=== PATIENT | male | born 1955 | race Caucasian/White ===

== ENCOUNTER → 2016-05-13 | Outpatient (REF) | payer OTHER ==
[2016-05-13 11:55] LABS: MEAN CORPUSCULAR HEMOGLOBIN 29.5 pg (27.0-33.0); MEAN CORPUSCULAR HGB CONC 33.9 g/dl (32.0-36.5); MEAN CORPUSCULAR VOLUME 86.9 fl (80.0-96.0); RED CELL DISTRIBUTION WIDTH 12.8 % (11.5-14.5); WHITE BLOOD COUNT 6.2 K/mm3 (4.0-10.0)
[2016-05-13 11:57] LABS: ALBUMIN 3.9 GM/DL (3.2-5.2); ALBUMIN/GLOBULIN RATIO 1.26 (1.00-1.93); ALKALINE PHOSPHATASE 58 U/L (45-117); ALT/SGPT 25 U/L (12-78); ANION GAP 10 MEQ/L (8-16); AST/SGOT 14 U/L (15-37); BILIRUBIN,TOTAL 0.7 MG/DL (0.2-1.0); BLOOD UREA NITROGEN 11 MG/DL (7-18); CALCIUM LEVEL 8.8 MG/DL (8.5-10.1); CARBON DIOXIDE LEVEL 28 MEQ/L (21-32); CHLORIDE LEVEL 105 MEQ/L (98-107); CHOLESTEROL LEVEL 145 MG/DL (<200); CREATININE FOR GFR 0.96 MG/DL (0.70-1.30); FERRITIN 49 NG/ML (26-388); GLOMERULAR FILTRATION RATE > 60.0 (>56); GLUCOSE, FASTING 106 MG/DL (70-105); PERCENT SATURATION 56.6 % (19.7-37.4); POTASSIUM SERUM 4.4 MEQ/L (3.5-5.1); SODIUM LEVEL 143 MEQ/L (136-145); TOTAL IRON BINDING CAPACITY 302 UG/DL (250-450); TRIGLYCERIDES LEVEL 89 MG/DL (<150)
[2016-05-13 12:02] LABS: VITAMIN B12 LEVEL 1799 PG/ML (247-911)
== END ==
LOC: M SFHCPLAZ 07:42
PROVIDERS: ATTEND Family Medicine
DX: Z98.84 Bariatric surgery status (principal); E78.2 Mixed hyperlipidemia; E55.9 Vitamin D deficiency, unspecified

== ENCOUNTER → 2016-08-20 | Outpatient (CLI) | payer OTHER, BC ==
[~2016-08-20] MED LIST: COUM2.5T11 PO; MULT1TAB10 PO; OMEP40CA2 PO; PERC5TAB6 PO; STOO100C PO; VITA100T PO
[2016-08-20 10:33] LABS: MEAN CORPUSCULAR HEMOGLOBIN 29.6 pg (27.0-33.0); MEAN CORPUSCULAR HGB CONC 34.6 g/dl (32.0-36.5); MEAN CORPUSCULAR VOLUME 85.6 fl (80.0-96.0); RED CELL DISTRIBUTION WIDTH 12.9 % (11.5-14.5); WHITE BLOOD COUNT 5.5 K/mm3 (4.0-10.0)
[2016-08-20 10:48] LABS: INR 0.93
[2016-08-20 10:55] LABS: ALBUMIN 4.1 GM/DL (3.2-5.2); ALBUMIN/GLOBULIN RATIO 1.41 (1.00-1.93); ALKALINE PHOSPHATASE 67 U/L (45-117); ALT/SGPT 28 U/L (12-78); ANION GAP 6 MEQ/L (8-16); AST/SGOT 14 U/L (15-37); BILIRUBIN,TOTAL 0.7 MG/DL (0.2-1.0); BLOOD UREA NITROGEN 12 MG/DL (7-18); CALCIUM LEVEL 8.7 MG/DL (8.5-10.1); CARBON DIOXIDE LEVEL 29 MEQ/L (21-32); CHLORIDE LEVEL 105 MEQ/L (98-107); CREATININE FOR GFR 0.92 MG/DL (0.70-1.30); GLOMERULAR FILTRATION RATE > 60.0 (>56); GLUCOSE, FASTING 106 MG/DL (70-105); POTASSIUM SERUM 4.2 MEQ/L (3.5-5.1); SODIUM LEVEL 140 MEQ/L (136-145)
--- NOTE | 2016-08-20 16:17 | ECGEPIP ---
Stationary ECG Study [facility] Test Date: 2016-08-20 Pat Name: TIFFANIE STALLWORTH Department: Room: - Gender: M Law Office Manager: JEANETTE : 1955 Requested By: Antonio Wellington Order Number: [id number] Reading MD: Darek Staley Measurements Intervals [place] Rate: 70 P: 55 SC: 195 QRS: -69 QRSD: 103 T: 51 QT: 348 QTc: 378 Interpretive Statements SINUS RHYTHM LEFT ANTERIOR FASCICULAR BLOCK Comparison tracing not on file Electronically Signed On 08-20-2016 16:17:08 EDT by Darek Staley
--- NOTE | 2016-08-21 07:25 | REP ---
Clinical: Chest pain with history of gastroesophageal reflux . Comparison: 06/06/2009 . Technique: PA and lateral. Findings: The mediastinum and cardiac silhouette are normal. The lung moran are relatively clear and without definite acute consolidation, effusion, or pneumothorax. However, lateral view cannot exclude a subtle posterobasilar vague opacity which may warrant followup. The skeletal structures are intact and normal. Impression: 1. Subtle posterior basilar vague opacity identified on lateral radiograph only cannot be excluded. Consider chest CT with contrast for further investigation. Signed by Hamilton Miner MD 08/21/2016 07:16 A
== END ==
LOC: M ADMPAT 09:10
PROVIDERS: ATTEND Orthopaedic Surgery
DX: Z01.818 Encounter for other preprocedural examination (principal); M17.12 Unilateral primary osteoarthritis, left knee; I44.4 Left anterior fascicular block

== ENCOUNTER 2016-08-28 09:46 | Inpatient (IN) | payer OTHER, BC ==
[2016-08-20 09:33] VITALS: BP 129/90
--- NOTE | 2016-08-26 09:29 | HPE ---
DATE OF ADMISSION: 08/28/2016 ATTENDING: Dr. Amish Vanegas CHIEF COMPLAINT: Left knee pain and stiffness. HISTORY OF PRESENT ILLNESS: This is a pleasant, 61-year-old male patient who sustained a work-related injury to his left knee continued to have progressively worsening left knee pain and stiffness. Now he has pain with weightbearing activities and activities of daily living. He has elected for surgery for his continued symptoms. He has consented for a left total knee arthroplasty by Dr. Vanegas. X-rays of the left knee notable for end-stage degenerative changes of the left knee. ALLERGIES: NO KNOWN DRUG ALLERGIES. CURRENT MEDICATIONS: He takes a multivitamin once per day, Prilosec 1 tablet once per day [id number]. He takes an [id number] stool softener 100 mg as needed. MEDICAL HISTORY: Includes intermittent gastric reflux disease. Otherwise, symptomatic osteoarthritis of the left knee. PRIOR SURGERIES: Gastric bypass, appendectomy and a left knee scope. SOCIAL HISTORY: Does not smoke. He rarely uses alcohol. FAMILY HISTORY: Noncontributory. REVIEW OF SYSTEMS: Denies fever or chills. Denies chest pain, shortness breath or cough. Denies difficulty breathing. Denies nausea or vomiting. Denies chest pain. Denies recent upper respiratory infection (URI) or urinary tract infection (UTI) symptoms. Has persistent pain in his left knee and pain with weightbearing activities on the left knee. PHYSICAL EXAMINATION: Today reveals a well-nourished, well-developed, alert male patient who walks with a relatively normal gait. He does not seem to favor either side. Exam of the left knee does reveal skin to be intact. No erythema, edema or ecchymosis. Tenderness both medially and laterally, patellar grind is irritable. The calf is soft, nontender to palpation. No pain with passive range of motion of the left ankle. He can sensate light touch. There is a well-healed surgical scar. Dorsalis pedis, posterior tib pulses are palpable. Neck is supple without adenopathy or jugular venous distention (JVD). Lungs are clear to auscultation without rales or wheeze. Heart: Regular rate and rhythm. Abdomen: Bowel sounds are present. Current vital signs: Height 70 inches. Weight 228 pounds. Temperature 97.8. Blood pressure 130/86. Pulse 76. Respirations 20. LABORATORY DATA: Glucose 106, BUN 12, creatinine 0.92, sodium 140, potassium 4.2, ESR 1. WBC count 5.5, RBC count 5.1, hemoglobin 15.2, hematocrit 43.9. UA within normal limits. Urine culture no growth. Nasal and sinus cultures normal brian. PT 12.6, INR 0.93. EKG sinus rhythm. Chest x-ray: No acute cardiopulmonary process noted. Recommended a CT for followup of a questionable density on the lateral view/. A letter was sent to his primary today. IMPRESSION: Symptomatic osteoarthritis of his left knee. PLAN: Left total knee arthroplasty by Dr. Vanegas.
[~2016-08-28] VITALS: Ht 182.9 cm; Wt 103.0 kg
[~2016-08-28 09:46] MED LIST changes: -COUM2.5T11 PO; -PERC5TAB6 PO
[2016-08-28] MEDS ORDERED: ACETAMINOPHEN 500 MG TAB PO ONE (10:00)
[2016-08-28] MEDS: LR 1,000 ML IV SCH ×3 (10:00→19:34)
[2016-08-28] MEDS ORDERED: LR 1,000 ML IV ONE (10:00)
[2016-08-28] MEDS ORDERED: BUPIVACAINE LIPOSOME/PF 1.3% 20 ML VIAL (13.3MG/ML)(EXPAREL) As Ordered ONE (10:41)
[2016-08-28] MEDS ORDERED: ceFAZolin 1GM INJ (J0690) As Ordered ONE (10:41)
[2016-08-28] MEDS ORDERED: TRANEXAMIC ACID 100 MG/ML 10ML VIAL As Ordered ONE (10:42)
[2016-08-28] MEDS ORDERED: EPINEPHrine INJ 1 MG/ML 1ML AMP As Ordered ONE (10:42)
[2016-08-28] MEDS ORDERED: fentaNYL 100 MCG/2 ML INJECTION (J3010) As Ordered ONE ×2 (11:26→12:56)
[2016-08-28] MEDS ORDERED: MIDAZOLAM INJ 2 MG/2 ML VIAL (J2250) As Ordered ONE ×4 (11:26→14:54)
[2016-08-28] MEDS ORDERED: fentaNYL 100 MCG/2 ML INJECTION (J3010) IV ONE (12:15)
[2016-08-28] MEDS ORDERED: MIDAZOLAM INJ 2 MG/2 ML VIAL (J2250) IV ONE (12:15)
[2016-08-28] MEDS ORDERED: LIDOCAINE 2% INJ 100 MG/5 ML SDV (FOR ANES.) As Ordered ONE (12:56)
[2016-08-28] MEDS ORDERED: PROPOFOL 200 MG/20 ML VIAL As Ordered ONE ×2 (12:56→15:29)
[2016-08-28] MEDS ORDERED: MORPHINE 1MG/ML IN 0.9% NACL 100ML IV BAG As Ordered ONE (16:58)
[2016-08-28] MEDS ORDERED: LR 1,000 ML IV SCH (17:00)
[2016-08-28] MEDS ORDERED: fentaNYL 100 MCG/2 ML INJECTION (J3010) IV PRN (17:00)
[2016-08-28] MEDS ORDERED: ONDANSETRON 4MG/2ML VIAL (J2405) IV PRN ×2 (17:00→17:15)
[2016-08-28] MEDS ORDERED: WARFARIN SOD 5 MG TAB PO SCH (17:00)
[2016-08-28] MEDS ORDERED: FLEET ENEMA PR PRN (17:15)
[2016-08-28] MEDS ORDERED: EPIDURAL/PCA KEYS XX PRN (17:15)
[2016-08-28] MEDS ORDERED: ACETAMINOPHEN TAB 650MG DOSE (2X325MG) PO PRN (17:15)
[2016-08-28] MEDS ORDERED: NALBUPHINE HCL 10 MG/ML AMP (J2300) IV PRN (17:15)
[2016-08-28] MEDS ORDERED: NALOXONE INJ 0.4 MG/1 ML VIAL (J2310) IV PRN (17:15)
[2016-08-28] MEDS ORDERED: MORPHINE 1MG/ML IN 0.9% NACL 100ML IV BAG IV PRN (17:15)
[2016-08-28] MEDS ORDERED: diphenhydrAMINE INJ 50MG/ML VIAL (J1200) IV PRN (17:15)
[2016-08-28 17:45] VITALS: BP 130/74
[2016-08-28 18:15] VITALS: BP 137/93
[2016-08-28 19:15] VITALS: BP 128/90
--- NOTE | 2016-08-28 19:40 | CR.PDOC ---
[facility] Consultation Consultation DATE OF CONSULTATION: 08/28/16 REFERRING PROVIDER: Guy Palacios M.D. ATTENDING PHYSICIAN: Dr. Vanegas REASON FOR CONSULTATION/CHIEF COMPLAINT: . Medical Co-Management HISTORY OF PRESENT ILLNESS: 61-year-old male with past medical history of GERD and gastric bypass surgery was admitted to [facility] for total left knee arthroplasty. The hospitalist service has been admitted for medical comanagement. At this time, the patient states that he is feeling well and denies any acute complaints of fevers, chills, chest pain, shortness of breath, palpitations, abdominal pain, or any nausea/20/ diarrhea. ALLERGIES: Please see below. HOME MEDICATIONS: Please see below. PAST MEDICAL HISTORY: As noted above PAST SURGICAL HISTORY: History of gastric bypass, appendectomy, left knee arthroscopy FAMILY HISTORY: Noncontributory SOCIAL HISTORY: Denies any alcohol, tobacco, illicit drug use. Is functionally independent at baseline. REVIEW OF SYSTEMS: 10 point review of systems negative unless otherwise specified in HPI. PHYSICAL EXAMINATION: VITAL SIGNS: Please see below. GENERAL APPEARANCE: . Awake, alert, oriented HEENT: . Normocephalic, atraumatic RESPIRATORY: . Clear to auscultation bilaterally CARDIOVASCULAR: . Normal rate, normal rhythm ABDOMEN: . Soft, nontender, nondistended EXTREMITIES: . Left knee noted to wrapped in surgical dressing. Range of motion limited secondary to recent surgery. Neurovascularly intact distally. LABORATORY DATA: Please see below. ASSESSMENT/PLAN: Status post total left knee arthroplasty Pain management and DVT prophylaxis as per primary team GERD Continue PPI History of gastric bypass Continue multivitamin supplementation Should there be any further questions regarding the patient's medical management , please note that my colleague Dr. Ambrosio will begin to follow the patient starting 08/29/16 at 7 AM. Vital Signs/I&O Vital Signs Date Time Temp Pulse Resp B/P (MAP) Pulse Ox O2 Delivery O2 Flow Rate FiO2 08/28/16 18:30 Nasal Cannula 2.0 08/28/16 17:20 61 18 119/74 (89) 100 08/28/16 17:05 96.7 Allergies Coded Allergies: No Known Drug Allergy (Unverified Allergy, Unknown, 08/28/16) Home Medications Scheduled Cyanocobalamin (Vitamin B-12) 100 Mcg Tab, Unknown Dose PO DAILY, (Reported) Docusate Sodium (Stool Softener) 100 Mg Cap, 100 MG PO DAILY, (Reported) Multivitamins (Multivitamin Adults) 1 Tab Tab, 1 TAB PO DAILY, (Reported) Omeprazole (Omeprazole) 40 Mg Cap, 40 MG PO DAILY, (Reported) GUY PALACIOS MD Aug 28, 2016 19:40
[2016-08-28 20:15] VITALS: BP 127/63
[2016-08-28 21:15] VITALS: BP 113/66
[2016-08-28 22:15] VITALS: BP 114/64
[2016-08-29 02:00] VITALS: BP 99/59
[2016-08-29] MEDS: LR 1,000 ML IV SCH (04:49)
[2016-08-29 06:00] VITALS: BP 116/62
[2016-08-29] MEDS ORDERED: ONDANSETRON 4 MG TAB (S0181) PO PRN (06:30)
[2016-08-29] MEDS ORDERED: PERCOCET 5MG/325MG TAB PO PRN ×2 (06:30)
[2016-08-29 06:56] LABS: MEAN CORPUSCULAR HEMOGLOBIN 29.1 pg (27.0-33.0); MEAN CORPUSCULAR HGB CONC 33.3 g/dl (32.0-36.5); MEAN CORPUSCULAR VOLUME 87.5 fl (80.0-96.0); RED CELL DISTRIBUTION WIDTH 12.7 % (11.5-14.5); WHITE BLOOD COUNT 13.4 K/mm3 (4.0-10.0)
[2016-08-29 06:58] LABS: INR 1.05
[2016-08-29 07:11] LABS: ANION GAP 4 MEQ/L (8-16); BLOOD UREA NITROGEN 16 MG/DL (7-18); CALCIUM LEVEL 8.3 MG/DL (8.5-10.1); CARBON DIOXIDE LEVEL 27 MEQ/L (21-32); CHLORIDE LEVEL 101 MEQ/L (98-107); CREATININE FOR GFR 0.87 MG/DL (0.70-1.30); GLOMERULAR FILTRATION RATE > 60.0 (>56); GLUCOSE, FASTING 133 MG/DL (70-105); POTASSIUM SERUM 4.6 MEQ/L (3.5-5.1); SODIUM LEVEL 132 MEQ/L (136-145)
[2016-08-29] MEDS ORDERED: COUM2.5T11 PO (08:30)
[2016-08-29] MEDS ORDERED: PERC5TAB6 PO (08:31)
[2016-08-29] MEDS ORDERED: MOM 30ML SUSPENSION UDC PO SCH (09:00)
[2016-08-29] MEDS ORDERED: ENOXAPARIN 40 MG/0.4 ML SYRINGE (J1650) SC ONE (09:00)
[2016-08-29] MEDS ORDERED: MIRALAX *UNIT DOSE* 17GM PACKET PO SCH (09:00)
[2016-08-29] MEDS ORDERED: MULTIVITAMINS/MINERALS THERAP 1 TAB PO SCH (09:00)
[2016-08-29] MEDS ORDERED: SENOKOT S TAB PO SCH (09:00)
[2016-08-29] MEDS ORDERED: OMEPRAZOLE 20 MG CAP PO SCH (09:00)
--- NOTE | 2016-08-29 09:28 | IPNPDOC ---
Subjective Date Seen The patient was seen on 08/29/16. Subjective Chief Complaint/HPI The patient is a 61-year-old male admitted with a reason for visit of Left Knee Arthritis. Events since last encounter Routine check prior to DC. No concerns. Constitutional: Denies: Chills, Fever, Night Sweats Pulmonary: Denies: Dyspnea, Cough Cardiovascular: Denies: Chest Pain, Palpitations, Orthopnea, Paroxysmal Noc. Dyspnea, Lt Headedness Gastrointestinal: Denies: Nausea, Vomiting, Abdominal Pain, Diarrhea, Constipation Psych: Reports: Mood Normal, Denies: Depression, Memory Issues Objective Physical Examination General Exam: Positive: Alert, No Acute Distress Eye Exam: Positive: PERRLA, Conjunctiva & lids normal, EOMI, Negative: Sclera icteric Neck Exam: Positive: Supple, Negative: JVD, thyromegaly Chest Exam: Positive: Clear to auscultation, Normal air movement Heart Exam: Positive: Rate Normal, Regular Rhythm, Normal S1, Normal S2, Negative: Murmurs, Rubs Neuro Exam: Positive: Normal Gait, Normal Speech, Cranial Nerves 3-12 NL, Reflexes 2+ Psych Exam: Positive: Mental status NL, Mood NL, Oriented x 3 Assessment /Plan Problems (1) Status post revision of total replacement of left knee Problem Text: DC home. Continue routine medications. F>u PCP as scheduled 2016 Plan/VTE VTE Prophylaxis Ordered?: Yes (warafrin per ortho) VS, I&O, 24H, Fishbone Vital Signs/I&O Vital Signs Date Time Temp Pulse Resp B/P (MAP) Pulse Ox O2 Delivery O2 Flow Rate FiO2 08/29/16 09:04 16 08/29/16 06:00 97.7 73 116/62 (80) 99 Room Air 08/28/16 18:30 2.0 I&O- Last 24 Hours up to 6 AM 08/29/16 06:00 Intake Total 2870 ml Output Total 1375 ml Balance 1495 ml Laboratory Data 24H LABS Laboratory Tests 2 08/29/16 06:17: Prothrombin Time 13.8, Prothromb Time International Ratio 1.05, Anion Gap 4L, Glomerular Filtration Rate > 60.0, Blood Urea Nitrogen 16, Creatinine 0.87, Sodium Level 132L, Potassium Level 4.6, Chloride Level 101, Carbon Dioxide Level 27, Calcium Level 8.3L CBC/BMP Laboratory Tests 08/29/16 06:17 Red Blood Count 4.22 L, Mean Corpuscular Volume 87.5, Mean Corpuscular Hemoglobin 29.1, Mean Corpuscular Hemoglobin Concent 33.3, Red Cell Distribution Width 12.7, Calcium Level 8.3 L Raine Cordova COMMUNITY MUSIC THERAPIST Aug 29, 2016 09:28
[2016-08-29 10:00] VITALS: BP 154/55
[2016-08-29] MEDS ORDERED: dexameTHASONE 10 MG/1 ML VIAL PRES.FREE (J1100) ONE (10:33)
[2016-08-29] MEDS ORDERED: ROPIvacaine 0.5% 30 ML INJECTION (J2795) ONE (10:33)
[2016-08-29] MEDS ORDERED: EPINEPHrine INJ 1 MG/ML 1ML AMP ONE (10:33)
[2016-08-29] MEDS ORDERED: WARFARIN SOD 5 MG TAB PO ONE (17:00)
--- NOTE | 2016-08-29 17:21 | REP ---
AP LATERAL LEFT KNEE: 08/29/2016. Clinical history: Status post left total knee arthroplasty. Comparison 09/22/2015 from [facility] [place]. Findings: Skin stefan anteriorly and three components of a left total knee arthroplasty are now noted. The three components are well aligned in patient [place] bone and each other. There is a suprapatellar effusion as the subcutaneous edema subcutaneous air from the immediate postoperative state. No other finding. Signed by Luke Davis MD 08/29/2016 05:12 P
--- NOTE | 2016-08-29 19:58 | RO ---
DATE OF PROCEDURE: 08/28/2016 PREPROCEDURE DIAGNOSIS: Left knee posttraumatic valgus degenerative arthritis. POSTPROCEDURE DIAGNOSIS: Left knee posttraumatic valgus degenerative arthritis. OPERATIVE PROCEDURE: Left total knee arthroplasty using a size 5 cruciate retaining femoral component with size 4 tibial tray and a 15 mm rotating platform polyethylene insert, 38 mm polyethylene button. All components were cemented. Prosthesis made by [employer]. It was a PFC knee. SURGEON: Antonio Vanegas MD [employer] SALESPERSON: Mrs. Rosemarie Jerez ANESTHESIA: Spinal with left femoral nerve block. SPECIMENS: Joint surface. ESTIMATED BLOOD LOSS: About 100 mL. DESCRIPTION OF OPERATION: Antibiotics were given intravenously, preoperatively and then successful left femoral nerve block anesthetic was established. A tourniquet was placed left lower extremity and not inflated. Then the left lower extremity was prepped and draped in the usual sterile fashion. After appropriate time-out, the leg was elevated and the tourniquet was inflated to 250 mmHg. The previous lateral peripatellar incision was marked, but avoided. An anterior incision was then made for a medial parapatellar approach to the knee. Bovie cautery was used to coagulate the crossing vessels. A medial parapatellar arthrotomy was then performed. We did not perform any significant medial subperiosteal dissection around the proximal tibia because of the overall valgus alignment. It was also noteworthy that he had a fairly significant flexion contracture. I did subperiosteal dissect around the proximal and lateral tibial plateau and then released the lateral synovial plica and adhesions and then was able to rolanda the patella and then flex the knee and the ACL was debrided. There was a significant amount of bone eburnation noted in the lateral, femoral and lateral tibial condyles as well as medially with predominant arthritis in the lateral compartment. The drill was placed down the center of the femoral canal. Distal femoral cutting block was then applied and set into position at 5 degrees valgus cut at 10 mm resection level for a left knee. Prior to setting the distal femoral cutting block I did remove the remaining cartilage off the medial femoral condyle such that the jig would fit more flush. We then did the distal femoral cut. AP sizing jig measured between a 4 and a 5. It was templated preoperatively as a 5 and he was very wide so we elected to go with a number 5. 3 degrees external rotation jig was applied and I actually rotated it just a little bit more in addition based on the epicondylar axis and white side line because of the wear on the lateral side of the distal femur. The four-in-one block was then pinned into position and the anterior posterior chamfer cuts were performed. We then exposed the proximal tibia, used the extramedullary alignment jig to estimate being parallel to the mechanical axis of the tibia. We referenced off the more involved lateral tibial condyle at 4 mm resection level. I checked medially and we were taking off about 8 mm from that side. The slope was checked to be sure they were in good position. Once the block was pinned into position, the extramedullary leland was used for a secondary check. It did appear that we were parallel to the mechanical axis and thus we performed a proximal tibial osteotomy. It is noteworthy that the lateral tibial condyle bone was very eburnated and hard, but we eventually able to perform the cut and then it was noteworthy at this point, however, that we had a significant amount of tightness, both in flexion and extension. However, I did place the laminar drywall finisher foreman laterally first and performed a completion medial meniscectomy, then placed the laminar drywall finisher foreman medially and performed a completion lateral meniscectomy and debridement of the posterior lateral osteophytes of which were several. But it was noteworthy that we could not get a 10 mm spacer in flexion or in extension, thus it was elected at this point to take an additional amount of bone off the proximal tibia. Thus, I dropped the block down 2 mm and performed a proximal tibial osteotomy revision. This did improve the flexion and extension gaps. I then exposed the proximal tibia and sized for a ____cut off , however, he was fairly snug but the flexion gap came back nicely. I was able to flex the knee, but there was still some tightness in flexion and still some tightness in extension, but there was some asymmetry to varus valgus stress testing and extension, but it was a bit tight laterally. Thus, I did place the knee in extension and used the laminar drywall finisher foreman to tighten the lateral collateral ligament and did a pie crust release and then I was able to get a 12.5 trial spacer block in position. It did improve, but I still was not quite satisfied with the laxity to valgus stress. However, as I did that he had recurrent difficulty when full extension. Thus, at this point I felt that we should take more distal femur because it was definitely more tight in extension than in flexion. Flexion seemed to be reasonably well gapped. Thus, I used the Batwing and reapplied the distal femoral cutting jig, and once I had found the appropriate holes, the distal femoral cut was taken down an additional 2 mm, then I rechecked our extension space. He was still a bit snug, thus I took an additional 2 mm, took it for a total of 4 mm in addition to the distal femur. Then, the four-in-one block was applied, then the anterior and posterior chamfer cuts, and there was not much more taken off posteriorly. At this point, we exposed the proximal tibia and sized for a #4 tibial tray. It was then reamed and broached into position. Then the trial 12.5 was applied. Then we placed the femur, however, the femur would not fit quite snugly. It tended to go into a flexed position and it was apparent that we were tight in the anterior chamfer cuts. Thus, at this point, I reapplied the four-in-one block and noted that indeed there was a bit of a flexion, that is the eburnated tough bone anteriorly caused the saw blade to skive and thus it was forcing the femoral component into flexion. Once I had that revised with reapplication of the four-in-one block and rechecking out cuts, the femoral component fit much better. Then, as I placed a trial 12.5 spacer and brought the knee into extension, he still had, however, some tightness in extension, but it was reasonably symmetric in flexion, but it still had some valgus laxity and it was tight laterally. I checked our alignment. It looked as if there may be some slight asymmetry in her tibial cut given the eburnated bone laterally, thus I reapplied the tibial jig with a Batwing and then I cheated the tibial jig into slight amount of a valgus cut such that we could take more off the tibia on the lateral side and leave the medial side alone and I pinned it into position using the extramedullary leland and then performed a revision proximal tibial cut. Then, I also took the time to look more closely at our posterior capsular releases once again to help improve extension. The laminar drywall finisher foreman was placed back into the knee both on the medial and lateral sides and I debrided more of the posterior lateral and medial condyles and tried to strip some of the posterior capsule from the femur and this indeed allowed better extension. At this point, then the 15 spacer block was applied and the knee would actually come almost into full extension, but had significantly improved valgus stress testing, thus I felt this was in the acceptable range. It is noteworthy that the tourniquet was released midway through the procedure just before I decided to revise the femoral cuts. The knee was brought into extension, I everted the patella, performed patella osteotomy, sized for a 38 button, the lug holes were drilled and the trial prosthesis was applied and the patellofemoral tracking was anatomic. Thus at this point, after these multiple revisions, and soft tissue releases, I think we had an overall acceptably aligned total knee and thus we elected to proceed with implanting these components. We elected not to proceed with a PCL sacrificing knee at this point. We did not think that would gain anything because we had reasonable alignment now and we could save his bone stock in case down the road he needed revision knee replacement. Thus, we removed all the trial components after the lug holes with the femur were drilled and then we applied the Esmarch and elevated the leg and reapplied the tourniquet and then prepared the bony surfaces for cementing with a copious amount of pulsatile lavage irrigant solution, which we did actually several times throughout the operation. My molding line assistant, Mrs. Rosemarie Jerez mixed the cement at the back table. She was also critical to the success of this procedure by helping to manipulate the knee, do soft tissue retraction as appropriate, help to close the wound, help to prepare the patient and many other tasks. Once the cement had been mixed, all the surfaces were thoroughly dried, I cemented the tibial tray, removed excess cement and placed the polyethylene and cemented the femoral component. Removed excess cement and then brought the knee to extension and then placed the cement on the patella and polyethylene patella component was applied and held with a clamp. All the excess cement was removed. We copiously pulsatile lavage irrigated out the knee joint as we waited for the cement to harden. As we were waiting, I then instilled the Exparel long-acting Marcaine injection near the periosteum around the femur and the tibia as well as the capsular edges and then applied the tranexamic acid and then began closing the arthrotomy with two Brandt #1 PDS sutures and the medial parapatellar areas closed with a #1 PDS suture, then a running double armed #1 Stratafix was used to close the capsule. The tourniquet was then released again and we copiously irrigated the soft tissues again, then irrigated the deep subdermal tissues, and interrupted #2-0 PDS sutures and the skin was closed with stefan, covered by Adaptic dry sterile bulky dressing. He was then transferred to the recovery room in stable condition. There were no intraoperative complications.
--- NOTE | 2016-09-03 21:56 | DSES ---
DATE OF ADMISSION: 08/28/2016 DATE OF DISCHARGE: 08/29/2016 ADMISSION DIAGNOSIS: Left knee arthritis. OTHER DIAGNOSIS: Gastroesophageal reflux disease. DISCHARGE DIAGNOSIS: Left knee arthritis status post left total knee arthroplasty. OPERATION PERFORMED: Left total knee arthroplasty. HISTORY: This is a 61-year-old male with progressively worsening left knee pain and stiffness. The patient was admitted for elective left knee replacement. HOSPITAL COURSE: The patient was admitted on the day of surgery and underwent left knee arthroplasty, which was uneventful. He did well in the postoperative period and his hospital course was without complications. The patient was up with physical therapy per the protocol and his pain was controlled. On the day of discharge the patient was doing well. He was weightbearing as tolerated, will move his knee to prevent stiffness, will use adjusted dose Coumadin and thromboembolitic deterrent (DEEDEE) stockings for 30 days postoperatively for deep venous thrombosis (DVT) prophylaxis and he will use oral medications for pain control. Also, he will follow in the office in two weeks for staple removal, will resume preoperative medications and diet and he was given instructions for wound monitoring and activity limitations. Please refer to the medical record for further detail.
== END 2016-08-29 13:25 | disposition home health service (06) | DRG 302 ==
LOC: M OR 09:46 → M MS5PR 17:30
PROVIDERS: ADMIT Orthopaedic Surgery; ATTEND Orthopaedic Surgery
PROC: 0SRD0J9 Replacement of Left Knee Joint with Synthetic Substitute, Cemented, Open Approach (ICD-10-PCS; principal; 2016-08-28 12:30)
DX: M17.32 Unilateral post-traumatic osteoarthritis, left knee (principal); K21.9 Gastro-esophageal reflux disease without esophagitis; E55.9 Vitamin D deficiency, unspecified; R91.8 Other nonspecific abnormal finding of lung field; Z98.84 Bariatric surgery status; Z90.49 Acquired absence of other specified parts of digestive tract; Z79.899 Other long term (current) drug therapy

== ENCOUNTER → 2016-09-12 | Outpatient (REF) | payer OTHER, BC ==
[~2016-09-12] MED LIST changes: +COUM2.5T17 PO; +PERC5TAB12 PO
[2016-09-12 14:39] LABS: INR 1.69
== END ==
LOC: M LABDRAW1 14:04
PROVIDERS: ATTEND Orthopaedic Surgery
DX: Z47.1 Aftercare following joint replacement surgery (principal)

== ENCOUNTER → 2016-09-19 | Outpatient (REF) | payer OTHER ==
[2016-09-19 15:59] LABS: INR 1.61
== END ==
LOC: M LAB REF 15:42
PROVIDERS: ATTEND Nurse Practitioner Family
DX: Z51.81 Encounter for therapeutic drug level monitoring (principal); Z79.01 Long term (current) use of anticoagulants

== ENCOUNTER → 2016-09-24 | Outpatient (CLI) | payer BC, OTHER ==
--- NOTE | 2016-09-24 17:27 | REP ---
Chest x-ray: Three views presented. History: Radiologic findings in the lung moran. Comparison chest x-ray August 20, 2016. Findings: Lungs are symmetrically aerated and free of infiltrate and clear today. The pleural angles are sharp. Heart is not enlarged. The aorta is somewhat tortuous. There is a mild dextroconvex curvature in the thoracic spine again noted. There are spine degenerative changes. Pulmonary vasculature is not increased. No abnormal pulmonary parenchymal density is visible today. Impression: No active disease. Signed by Paresh Mg MD 09/25/2016 09:24 A
== END ==
LOC: M ADAMS 15:26
PROVIDERS: ATTEND Family Medicine
DX: R91.8 Other nonspecific abnormal finding of lung field (principal)

== ENCOUNTER → 2017-05-14 | Outpatient (REF) | payer OTHER ==
[2017-05-14 11:38] LABS: HEMATOCRIT 40.7 % (42.0-52.0); HEMOGLOBIN 13.2 g/dl (14.0-18.0); MEAN CORPUSCULAR HEMOGLOBIN 27.6 pg (27.0-33.0); MEAN CORPUSCULAR HGB CONC 32.4 g/dl (32.0-36.5); MEAN CORPUSCULAR VOLUME 85.1 fl (80.0-96.0); PLATELET COUNT, AUTOMATED 167 10^3/uL (150-450); RED BLOOD COUNT 4.78 10^6/uL (4.30-6.10); RED CELL DISTRIBUTION WIDTH 13.2 % (11.5-14.5); WHITE BLOOD COUNT 4.7 10^3/uL (4.0-10.0)
[2017-05-14 12:01] LABS: VITAMIN B12 LEVEL 1842 PG/ML (247-911)
[2017-05-14 12:03] LABS: ESTIMATED AVERAGE GLUCOSE 123 MG/DL (60-110); HEMOGLOBIN A1c 5.9 %
[2017-05-14 12:09] LABS: ALBUMIN 4.1 GM/DL (3.2-5.2); ALBUMIN/GLOBULIN RATIO 1.41 (1.00-1.93); ALKALINE PHOSPHATASE 77 U/L (45-117); ALT/SGPT 20 U/L (12-78); ANION GAP 5 MEQ/L (8-16); AST/SGOT 12 U/L (7-37); BILIRUBIN,TOTAL 0.5 MG/DL (0.2-1.0); BLOOD UREA NITROGEN 18 MG/DL (7-18); CALCIUM LEVEL 8.6 MG/DL (8.8-10.2); CARBON DIOXIDE LEVEL 30 MEQ/L (21-32); CHLORIDE LEVEL 109 MEQ/L (98-107); CHOLESTEROL LEVEL 123 MG/DL (<200); CHOLESTEROL RISK RATIO 3.416 (<5); CREATININE FOR GFR 0.92 MG/DL (0.70-1.30); FERRITIN 12 NG/ML (26-388); GLOMERULAR FILTRATION RATE > 60.0 (>49); GLUCOSE, FASTING 96 MG/DL (70-100); HDL CHOLESTEROL 36 MG/DL (>40); NON-HDL-C 87 MG/DL; POTASSIUM SERUM 4.4 MEQ/L (3.5-5.1); SODIUM LEVEL 144 MEQ/L (136-145); TRIGLYCERIDES LEVEL 45 MG/DL (<150)
== END ==
LOC: M SFHCLERA 07:53
DX: E74.9 Disorder of carbohydrate metabolism, unspecified (principal); Z98.84 Bariatric surgery status; E78.2 Mixed hyperlipidemia; E55.9 Vitamin D deficiency, unspecified
CPT/HCPCS: 82607

== ENCOUNTER → 2018-02-17 | Outpatient (REF) | payer OTHER ==
[2018-02-17 11:55] LABS: HEMATOCRIT 44.1 % (42.0-52.0); HEMOGLOBIN 14.7 g/dl (13.5-17.5); MEAN CORPUSCULAR HEMOGLOBIN 28.7 pg (27.0-33.0); MEAN CORPUSCULAR HGB CONC 33.3 g/dl (32.0-36.5); PLATELET COUNT, AUTOMATED 181 10^3/uL (150-450); RED BLOOD COUNT 5.13 10^6/uL (4.30-6.10); RED CELL DISTRIBUTION WIDTH 12.7 % (11.5-14.5); RETIC HEMOGLOBIN EQUIVALENT 34.4 pg (24-36); RETICULOCYTE # 41.6 10^9/L (17-77); RETICULOCYTE % 0.8 % (0.5-1.5); WHITE BLOOD COUNT 5.8 10^3/uL (4.0-10.0)
[2018-02-17 12:13] LABS: FERRITIN 27 NG/ML (26-388); IRON (FE) 148 UG/DL (65-175); PERCENT SATURATION 45.5 % (19.7-50.0); TOTAL IRON BINDING CAPACITY 325 UG/DL (250-450)
== END ==
LOC: M SFHCADAM 07:54
DX: D50.8 Other iron deficiency anemias (principal)

== ENCOUNTER → 2018-05-14 | Outpatient (REF) | payer OTHER ==
[~2018-05-14] MED LIST changes: -VITA100T PO; +VITA1TAB22 PO
[2018-05-14 11:32] LABS: HEMATOCRIT 44.7 % (42.0-52.0); HEMOGLOBIN 14.9 g/dl (13.5-17.5); MEAN CORPUSCULAR HEMOGLOBIN 28.4 pg (27.0-33.0); MEAN CORPUSCULAR HGB CONC 33.3 g/dl (32.0-36.5); MEAN CORPUSCULAR VOLUME 85.1 fl (80.0-96.0); PLATELET COUNT, AUTOMATED 174 10^3/uL (150-450); RED BLOOD COUNT 5.25 10^6/uL (4.30-6.10); WHITE BLOOD COUNT 6.1 10^3/uL (4.0-10.0)
[2018-05-14 11:43] LABS: ALBUMIN 4.1 GM/DL (3.2-5.2); ALT/SGPT 30 U/L (12-78); BILIRUBIN,TOTAL 0.5 MG/DL (0.2-1.0); BLOOD UREA NITROGEN 17 MG/DL (7-18); CALCIUM LEVEL 8.8 MG/DL (8.8-10.2); CARBON DIOXIDE LEVEL 30 MEQ/L (21-32); CHLORIDE LEVEL 105 MEQ/L (98-107); CHOLESTEROL LEVEL 155 MG/DL (<200); CHOLESTEROL RISK RATIO 5.166 (<5); CREATININE FOR GFR 0.83 MG/DL (0.70-1.30); FERRITIN 29 NG/ML (26-388); GLOMERULAR FILTRATION RATE > 60.0 (>49); GLUCOSE, FASTING 106 MG/DL (70-100); HDL CHOLESTEROL 30 MG/DL (>40); IRON (FE) 118 UG/DL (65-175); LDL CHOLESTEROL 100 MG/DL (<100); NON-HDL-C 125 MG/DL; PERCENT SATURATION 35.2 % (19.7-50.0); POTASSIUM SERUM 4.4 MEQ/L (3.5-5.1); SODIUM LEVEL 140 MEQ/L (136-145); TOTAL IRON BINDING CAPACITY 335 UG/DL (250-450); TOTAL PROTEIN 7.2 GM/DL (6.4-8.2); TRIGLYCERIDES LEVEL 123 MG/DL (<150)
[2018-05-14 11:48] LABS: TOTAL 25(OH) VITAMIN D 30.9 NG/ML (30.0-100.0); VITAMIN B12 LEVEL 1562 PG/ML (247-911)
[2018-05-14 12:19] LABS: HEMOGLOBIN A1c 5.9 %
== END ==
LOC: M SFHCADAM 07:48
PROVIDERS: ATTEND Family Medicine
DX: D50.8 Other iron deficiency anemias (principal); E78.2 Mixed hyperlipidemia; R73.03 Prediabetes; Z12.5 Encounter for screening for malignant neoplasm of prostate; E55.9 Vitamin D deficiency, unspecified; K21.9 Gastro-esophageal reflux disease without esophagitis; Z79.01 Long term (current) use of anticoagulants
CPT/HCPCS: 80053; 80061; 82306; 82607; 82728; 83036; 83550; 85027; 85046; G0103

== ENCOUNTER → 2019-06-02 | Outpatient (REF) | payer OTHER ==
[~2019-06-02] MED LIST changes: +CYAN100T5 PO; +MM S100C PO; -OMEP40CA2 PO; +OMEP40CA97 PO; -STOO100C PO; -VITA1TAB22 PO
[2019-06-02 12:24] LABS: HEMATOCRIT 45.3 % (42.0-52.0); HEMOGLOBIN 14.8 g/dl (13.5-17.5); MEAN CORPUSCULAR HGB CONC 32.7 g/dl (32.0-36.5); MEAN CORPUSCULAR VOLUME 88.8 fl (80.0-96.0); PLATELET COUNT, AUTOMATED 184 10^3/uL (150-450); WHITE BLOOD COUNT 6.7 10^3/uL (4.0-10.0)
[2019-06-02 12:33] LABS: ALT/SGPT 25 U/L (12-78); BILIRUBIN,TOTAL 0.5 MG/DL (0.2-1.0); BLOOD UREA NITROGEN 15 MG/DL (7-18); CALCIUM LEVEL 9.2 MG/DL (8.8-10.2); CARBON DIOXIDE LEVEL 31 MEQ/L (21-32); CHLORIDE LEVEL 107 MEQ/L (98-107); CHOLESTEROL LEVEL 153 MG/DL (<200); CHOLESTEROL RISK RATIO 4.935 (<5); CREATININE FOR GFR 0.94 MG/DL (0.70-1.30); FERRITIN 22 NG/ML (26-388); GLOMERULAR FILTRATION RATE > 60.0 (>49); GLUCOSE, FASTING 104 MG/DL (70-100); HDL CHOLESTEROL 31 MG/DL (>40); LDL CHOLESTEROL 103 MG/DL (<100); NON-HDL-C 122 MG/DL; POTASSIUM SERUM 4.4 MEQ/L (3.5-5.1); SODIUM LEVEL 142 MEQ/L (136-145); TOTAL PROTEIN 7.1 GM/DL (6.4-8.2); TRIGLYCERIDES LEVEL 95 MG/DL (<150)
[2019-06-02 12:50] LABS: HEMOGLOBIN A1c 6.2 %
== END ==
LOC: M SFHCLERA 07:51
PROVIDERS: ATTEND Family Medicine
DX: Z98.84 Bariatric surgery status (principal); D50.8 Other iron deficiency anemias; E78.2 Mixed hyperlipidemia; R73.03 Prediabetes; Z12.5 Encounter for screening for malignant neoplasm of prostate; E55.9 Vitamin D deficiency, unspecified

== ENCOUNTER → 2020-05-16 | Outpatient (CLI) | payer OTHER ==
[~2020-05-16] MED LIST changes: +CYAN100T4 PO; -CYAN100T5 PO
[2020-05-16 10:31] LABS: HEMATOCRIT 46.8 % (42.0-52.0); HEMOGLOBIN 15.4 g/dl (13.5-17.5); MEAN CORPUSCULAR HEMOGLOBIN 28.5 pg (27.0-33.0); MEAN CORPUSCULAR HGB CONC 32.9 g/dl (32.0-36.5); MEAN CORPUSCULAR VOLUME 86.5 fl (80.0-96.0); PLATELET COUNT, AUTOMATED 196 10^3/uL (150-450); RED BLOOD COUNT 5.41 10^6/uL (4.30-6.10)
[2020-05-16 10:50] LABS: HEMOGLOBIN A1c 5.6 %
[2020-05-16 10:54] LABS: ALBUMIN 4.1 GM/DL (3.2-5.2); ALT/SGPT 34 U/L (12-78); BILIRUBIN,TOTAL 0.4 MG/DL (0.2-1.0); BLOOD UREA NITROGEN 18 MG/DL (7-18); CALCIUM LEVEL 8.7 MG/DL (8.8-10.2); CARBON DIOXIDE LEVEL 27 MEQ/L (21-32); CHLORIDE LEVEL 107 MEQ/L (98-107); CHOLESTEROL LEVEL 166 MG/DL (<200); CHOLESTEROL RISK RATIO 5.533 (<5); CREATININE FOR GFR 1.03 MG/DL (0.70-1.30); FERRITIN 27 NG/ML (26-388); GLOMERULAR FILTRATION RATE > 60.0 (>49); GLUCOSE, FASTING 120 MG/DL (70-100); HDL CHOLESTEROL 30 MG/DL (>40); LDL CHOLESTEROL 110 MG/DL (<100); NON-HDL-C 136 MG/DL; POTASSIUM SERUM 4.2 MEQ/L (3.5-5.1); SODIUM LEVEL 141 MEQ/L (136-145); TOTAL PROTEIN 7.3 GM/DL (6.4-8.2); TRIGLYCERIDES LEVEL 130 MG/DL (<150)
[2020-05-16 10:57] LABS: TOTAL 25(OH) VITAMIN D 37.8 NG/ML (30.0-100.0)
[2020-05-16 10:58] LABS: VITAMIN B12 LEVEL > 2000 PG/ML (247-911)
== END ==
LOC: M WUC 08:06
PROVIDERS: ATTEND Family Medicine
DX: D50.8 Other iron deficiency anemias (principal); E78.2 Mixed hyperlipidemia; R73.03 Prediabetes; E55.9 Vitamin D deficiency, unspecified; Z98.84 Bariatric surgery status

== ENCOUNTER → 2021-04-16 | Outpatient (CLI) | payer BC, OTHER ==
[~2021-04-16] MED LIST changes: +CYAN100050 PO; +MULT-40 PO; +OMEP40CA4 PO; -OMEP40CA97 PO; +PERCOCET PO
== END ==
LOC: M RAD 12:44
PROVIDERS: ATTEND Physician Assistant
DX: M79.661 Pain in right lower leg (principal)

== ENCOUNTER 2021-04-22 07:05 | Inpatient (IN) | payer BC, OTHER ==
[~2021-04-22] VITALS: Ht 182.9 cm; Wt 97.9 kg
[~2021-04-22 07:05] MED LIST changes: -CYAN100050 PO; -MULT-40 PO; -PERCOCET PO
[2021-04-22] MEDS ORDERED: KETOROLAC 30 MG/ML 1ML VIAL IV ONE (08:00)
[2021-04-22 08:44] LABS: HEMATOCRIT 41.3 % (42.0-52.0); HEMOGLOBIN 13.6 g/dl (13.5-17.5); MEAN CORPUSCULAR HEMOGLOBIN 28.5 pg (27.0-33.0); MEAN CORPUSCULAR HGB CONC 32.9 g/dl (32.0-36.5); MEAN CORPUSCULAR VOLUME 86.4 fl (80.0-96.0); PLATELET COUNT, AUTOMATED 375 10^3/uL (150-450); RED BLOOD COUNT 4.78 10^6/uL (4.30-6.10); WHITE BLOOD COUNT 14.8 10^3/uL (4.0-10.0)
[2021-04-22 08:55] LABS: INR 1.08; PROTHROMBIN TIME 14.4 SECONDS (12.7-14.5)
[2021-04-22 08:56] LABS: PARTIAL THROMBOPLASTIN TIME 27.1 SECONDS (25.9-37.0)
[2021-04-22 09:06] LABS: CK-MB VALUE MASS 2.1 NG/ML (<3.6); MB/CK RELATIVE INDEX 1.94 (< OR =4)
[2021-04-22 09:11] LABS: BLOOD UREA NITROGEN 17 MG/DL (7-18); CALCIUM LEVEL 8.1 MG/DL (8.8-10.2); CARBON DIOXIDE LEVEL 30 MEQ/L (21-32); CHLORIDE LEVEL 98 MEQ/L (98-107); CREATININE FOR GFR 1.06 MG/DL (0.70-1.30); GLOMERULAR FILTRATION RATE > 60.0 (>49); GLUCOSE, FASTING 149 MG/DL (70-100); NT-PRO BNP 246 PG/ML (<125); SODIUM LEVEL 137 MEQ/L (136-145)
[2021-04-22 09:12] LABS: ERYTHROCYTE SEDIMENTATION RATE 69 mm/hr (0-20)
[2021-04-22 09:17] LABS: ATYPICAL LYMPH 2 % (0-5); LYMPHOCYTES 13 % (16-44); MONOCYTES 8 % (0-5); NEUTROPHILS 65 % (28-66)
[2021-04-22 09:20] LABS: PLATELET CLUMPS MODERATE AMT; PLATELET ESTIMATE NORMAL (NORMAL)
[2021-04-22] MEDS ORDERED: NS 1,000 ML IV ONE ×2 (10:20→20:05)
[2021-04-22] MEDS ORDERED: cefTRIAXone SOD 1 GM in D5W MINI-BAG PLUS 50 ML IV ONE (10:30)
[2021-04-22] MEDS ORDERED: CYAN100050 PO (10:54)
[2021-04-22] MEDS ORDERED: MULT-40 PO (10:54)
[2021-04-22] MEDS: OMEPRAZOLE 20MG CAP PO SCH (11:00)
[2021-04-22] MEDS ORDERED: HOME MED LIST COMPLETE! XX SCH (11:00)
[2021-04-22 11:20] LABS: RSV AMPLIFICATION NEGATIVE (NEGATIVE)
[2021-04-22] MEDS: ceFAZolin SOD 1 GM in D5W MINI-BAG PLUS 50 ML IV SCH ×2 (11:50→19:58)
[2021-04-22] MEDS: NS 1,000 ML IV SCH ×2 (12:27→16:45)
[2021-04-22 13:20] VITALS: BP 125/59
[2021-04-22 19:59] VITALS: BP 110/57
[2021-04-22] MEDS: ACETAMINOPHEN TAB 650MG DOSE (2X325MG) PO PRN (20:36)
[2021-04-23] VITALS (8 sets, daily range): BP systolic 105–126; BP diastolic 56–63
[2021-04-23] MEDS: ceFAZolin SOD 1 GM in D5W MINI-BAG PLUS 50 ML IV SCH (03:54)
[2021-04-23] MEDS: NS 1,000 ML IV SCH ×2 (03:54→07:00)
[2021-04-23] MEDS ORDERED: VANCOMYCIN HCL 1,000 MG, VIAL MATE ADAPTER 1 EACH in NS 250 ML IV SCH (04:00)
[2021-04-23] MEDS ORDERED: VANCOMYCIN HCL 1,000 MG, VIAL MATE ADAPTER 1 EACH in NS 250 ML IV ONE ×2 (05:00→06:00)
[2021-04-23] MEDS: OMEPRAZOLE 20MG CAP PO SCH (08:34)
[2021-04-23 09:24] LABS: HEMATOCRIT 35.4 % (42.0-52.0); HEMOGLOBIN 11.5 g/dl (13.5-17.5); MEAN CORPUSCULAR HEMOGLOBIN 28.9 pg (27.0-33.0); MEAN CORPUSCULAR HGB CONC 32.5 g/dl (32.0-36.5); MEAN CORPUSCULAR VOLUME 88.9 fl (80.0-96.0); PLATELET COUNT, AUTOMATED 323 10^3/uL (150-450); RED BLOOD COUNT 3.98 10^6/uL (4.30-6.10); WHITE BLOOD COUNT 14.4 10^3/uL (4.0-10.0)
[2021-04-23 09:44] LABS: BLOOD UREA NITROGEN 13 MG/DL (7-18); CALCIUM LEVEL 7.8 MG/DL (8.8-10.2); CARBON DIOXIDE LEVEL 27 MEQ/L (21-32); CHLORIDE LEVEL 104 MEQ/L (98-107); CREATININE FOR GFR 0.97 MG/DL (0.70-1.30); GLOMERULAR FILTRATION RATE > 60.0 (>49); GLUCOSE, FASTING 132 MG/DL (70-100); POTASSIUM SERUM 3.6 MEQ/L (3.5-5.1); SODIUM LEVEL 138 MEQ/L (136-145)
[2021-04-23 11:45] LABS: ATYPICAL LYMPH 1 % (0-5); EOSINOPHILS 1 % (0-3); LYMPHOCYTES 11 % (16-44); MONOCYTES 9 % (0-5); NEUTROPHILS 76 % (28-66); PLATELET ESTIMATE NORMAL (NORMAL)
[2021-04-23] MEDS: LR 1,000 ML IV SCH ×2 (13:06→19:45)
[2021-04-23] MEDS: VANCOMYCIN HCL 750 MG, VIAL MATE ADAPTER 1 EACH in NS 250 ML IV SCH ×2 (13:07→14:41)
[2021-04-23 13:21] LABS: ALBUMIN 1.8 GM/DL (3.2-5.2); ALT/SGPT 161 U/L (12-78); BILIRUBIN,DIRECT 0.2 MG/DL (0.0-0.2); BILIRUBIN,TOTAL 0.4 MG/DL (0.2-1.0); TOTAL PROTEIN 6.3 GM/DL (6.4-8.2)
[2021-04-23] MEDS ORDERED: LIDOCAINE 1% MDV 20ML VIAL As Ordered ONE (15:37)
[2021-04-23] MEDS: ACETAMINOPHEN TAB 650MG DOSE (2X325MG) PO PRN (17:13)
[2021-04-23] MEDS ORDERED: REMDESIVIR 200 MG in NS 250 ML IV ONE (18:00)
[2021-04-23] MEDS ORDERED: SODIUM CHLORIDE 0.9% INJ 10 ML SYR IV ONE (18:00)
[2021-04-23] MEDS ORDERED: ISOVUE-370 76% 100ML VIAL As Ordered ONE (18:37)
[2021-04-24] VITALS (7 sets, daily range): BP systolic 104–122; BP diastolic 60–65
[2021-04-24] MEDS: VANCOMYCIN HCL 750 MG, VIAL MATE ADAPTER 1 EACH in NS 250 ML IV SCH ×4 (01:35→21:10)
[2021-04-24] MEDS: LR 1,000 ML IV SCH ×2 (02:42→10:33)
[2021-04-24] MEDS: OMEPRAZOLE 20MG CAP PO SCH (08:45)
[2021-04-24 10:00] LABS: BASO # 0.1 10^3/uL (0.0-0.2); BASO % 0.4 % (0.0-1.0); EOS # 0.1 10^3/uL (0.0-0.5); HEMATOCRIT 34.8 % (42.0-52.0); HEMOGLOBIN 11.2 g/dl (13.5-17.5); LYMPH # 1.2 10^3/uL (1.5-5.0); LYMPH % 9.7 % (24.0-44.0); MEAN CORPUSCULAR HEMOGLOBIN 28.3 pg (27.0-33.0); MEAN CORPUSCULAR HGB CONC 32.2 g/dl (32.0-36.5); MEAN CORPUSCULAR VOLUME 87.9 fl (80.0-96.0); MONO % 8.4 % (2.0-8.0); NEUTROPHILS # 9.4 10^3/uL (1.5-8.5); NEUTROPHILS % 78.5 % (36.0-66.0); PLATELET COUNT, AUTOMATED 335 10^3/uL (150-450); RED BLOOD COUNT 3.96 10^6/uL (4.30-6.10); WHITE BLOOD COUNT 11.9 10^3/uL (4.0-10.0)
[2021-04-24 10:29] LABS: ALBUMIN 1.8 GM/DL (3.2-5.2); ALT/SGPT 191 U/L (12-78); BILIRUBIN,DIRECT 0.2 MG/DL (0.0-0.2); BILIRUBIN,TOTAL 0.4 MG/DL (0.2-1.0); BLOOD UREA NITROGEN 9 MG/DL (7-18); CALCIUM LEVEL 7.7 MG/DL (8.8-10.2); CARBON DIOXIDE LEVEL 28 MEQ/L (21-32); CHLORIDE LEVEL 104 MEQ/L (98-107); CREATININE FOR GFR 0.79 MG/DL (0.70-1.30); GLOMERULAR FILTRATION RATE > 60.0 (>49); GLUCOSE, FASTING 103 MG/DL (70-100); SODIUM LEVEL 140 MEQ/L (136-145); TOTAL PROTEIN 5.7 GM/DL (6.4-8.2)
[2021-04-24 10:35] LABS: ERYTHROCYTE SEDIMENTATION RATE 54 mm/hr (0-20)
[2021-04-24 11:16] LABS: HEPATITIS B SURFACE ANTIGEN NEGATIVE (NEGATIVE); HEPATITIS C VIRUS ABY INDEX 0.2 INDEX (<0.8)
[2021-04-24] MEDS ORDERED: MIDAZOLAM INJ 2MG/2ML VIAL (J2250 PER 1MG) As Ordered ONE (12:14)
[2021-04-24] MEDS ORDERED: fentaNYL 250 MCG/5 ML INJECTION As Ordered ONE (12:14)
[2021-04-24] MEDS ORDERED: dexameTHASONE 4 MG/ML 1ML VIAL (J1100 PER 1MG) As Ordered ONE (12:15)
[2021-04-24] MEDS ORDERED: ROCURONIUM BROMIDE 50 MG/5 ML VIAL As Ordered ONE (12:15)
[2021-04-24] MEDS ORDERED: propofoL 200 MG/20 ML VIAL As Ordered ONE (12:15)
[2021-04-24] MEDS ORDERED: LIDOCAINE 2% 100MG/5ML SDV (FOR ANES.) As Ordered ONE (12:15)
[2021-04-24] MEDS ORDERED: ONDANSETRON 4MG/2ML VIAL As Ordered ONE (12:15)
[2021-04-24] MEDS ORDERED: VANCOMYCIN 1000MG/20ML VIAL As Ordered ONE (12:35)
[2021-04-24] MEDS ORDERED: BUPIVACAINE HCL 0.25% 30ML VIAL As Ordered ONE (12:35)
[2021-04-24] MEDS ORDERED: SUCCINYLCHOLINE 100 MG/5 ML SYRINGE (J0330) As Ordered ONE (13:10)
[2021-04-24 13:20] LABS: VANCOMYCIN RANDOM 16.2 UG/ML
[2021-04-24] MEDS ORDERED: ACETAMINOPHEN 1000MG 100ML IV BTL (OFIRMEV) (J0131 PER 10MG) As Ordered ONE (13:25)
[2021-04-24] MEDS ORDERED: PHENYLephrine 500MCG 5ML (100MCG/ML) SYRINGE As Ordered ONE (13:27)
[2021-04-24] MEDS ORDERED: BUPIVACAINE/EPIN 0.5% 30 ML VIAL As Ordered ONE (13:37)
[2021-04-24] MEDS ORDERED: fentaNYL 100 MCG/2 ML INJECTION IV PRN (14:50)
[2021-04-24] MEDS ORDERED: LR 1,000 ML IV SCH ×2 (14:50→14:55)
[2021-04-24] MEDS ORDERED: oxyCODONE 5MG TAB PO PRN (14:50)
[2021-04-24] MEDS ORDERED: ONDANSETRON 4MG/2ML VIAL IV PRN (14:50)
[2021-04-24] MEDS ORDERED: PERCOCET 5MG/325MG TAB PO PRN (14:55)
[2021-04-24] MEDS ORDERED: MORPHINE 2 MG/ML 1ML VIAL (J2270) IV PRN (14:55)
[2021-04-24 17:15] LABS: VANCOMYCIN LEVEL TROUGH 9.3 UG/ML (10.0-20.0)
[2021-04-24] MEDS ORDERED: VANCOMYCIN HCL 750 MG, VIAL MATE ADAPTER 1 EACH in NS 250 ML IV SCH (18:00)
[2021-04-24] MEDS: REMDESIVIR 100 MG in NS 250 ML IV SCH (18:16)
[2021-04-24] MEDS: SODIUM CHLORIDE 0.9% INJ 10 ML SYR IV SCH (18:17)
[2021-04-24] MEDS: ASPIRIN 81MG ENTERIC TABLET PO SCH (21:11)
[2021-04-24] MEDS: ACETAMINOPHEN TAB 650MG DOSE (2X325MG) PO PRN (23:26)
[2021-04-25 03:48] VITALS: BP 112/62
[2021-04-25] MEDS: VANCOMYCIN HCL 750 MG, VIAL MATE ADAPTER 1 EACH in NS 250 ML IV SCH ×4 (06:57→21:48)
[2021-04-25 07:15] VITALS: BP 105/62
[2021-04-25 07:53] LABS: BASO % 0.3 % (0.0-1.0); EOS % 0.3 % (0.0-3.0); HEMATOCRIT 32.2 % (42.0-52.0); HEMOGLOBIN 10.4 g/dl (13.5-17.5); LYMPH # 1.3 10^3/uL (1.5-5.0); LYMPH % 11.2 % (24.0-44.0); MEAN CORPUSCULAR HEMOGLOBIN 28.5 pg (27.0-33.0); MEAN CORPUSCULAR HGB CONC 32.3 g/dl (32.0-36.5); MEAN CORPUSCULAR VOLUME 88.2 fl (80.0-96.0); MONO # 0.6 10^3/uL (0.0-0.8); MONO % 4.8 % (2.0-8.0); NEUTROPHILS # 9.5 10^3/uL (1.5-8.5); NEUTROPHILS % 82.1 % (36.0-66.0); PLATELET COUNT, AUTOMATED 344 10^3/uL (150-450); RED BLOOD COUNT 3.65 10^6/uL (4.30-6.10); WHITE BLOOD COUNT 11.6 10^3/uL (4.0-10.0)
[2021-04-25 08:19] LABS: BLOOD UREA NITROGEN 15 MG/DL (7-18); CARBON DIOXIDE LEVEL 28 MEQ/L (21-32); CHLORIDE LEVEL 106 MEQ/L (98-107); CREATININE FOR GFR 0.77 MG/DL (0.70-1.30); GLOMERULAR FILTRATION RATE > 60.0 (>49); GLUCOSE, FASTING 141 MG/DL (70-100); POTASSIUM SERUM 4.2 MEQ/L (3.5-5.1); SODIUM LEVEL 141 MEQ/L (136-145)
[2021-04-25] MEDS: ASPIRIN 81MG ENTERIC TABLET PO SCH ×2 (09:13→21:48)
[2021-04-25] MEDS: OMEPRAZOLE 20MG CAP PO SCH (09:13)
[2021-04-25] MEDS: ENOXAPARIN 40MG/0.4ML SYRINGE (J1650 PER 10MG) SC SCH (09:13)
[2021-04-25 11:19] VITALS: BP 106/61
[2021-04-25 15:26] VITALS: BP 108/63
[2021-04-25] MEDS: SODIUM CHLORIDE 0.9% INJ 10 ML SYR IV SCH (18:00)
[2021-04-25] MEDS: REMDESIVIR 100 MG in NS 250 ML IV SCH (18:00)
[2021-04-25 20:00] VITALS: BP 107/55
[2021-04-26] VITALS: BP 104/55
[2021-04-26 04:00] VITALS: BP 110/63
[2021-04-26] MEDS: VANCOMYCIN HCL 750 MG, VIAL MATE ADAPTER 1 EACH in NS 250 ML IV SCH ×4 (06:34→20:42)
[2021-04-26 06:37] LABS: BASO % 0.5 % (0.0-1.0); EOS # 0.1 10^3/uL (0.0-0.5); EOS % 1.4 % (0.0-3.0); HEMATOCRIT 30.7 % (42.0-52.0); HEMOGLOBIN 10.1 g/dl (13.5-17.5); LYMPH # 1.1 10^3/uL (1.5-5.0); LYMPH % 13.1 % (24.0-44.0); MEAN CORPUSCULAR HEMOGLOBIN 28.9 pg (27.0-33.0); MEAN CORPUSCULAR HGB CONC 32.9 g/dl (32.0-36.5); MONO # 0.5 10^3/uL (0.0-0.8); MONO % 5.9 % (2.0-8.0); NEUTROPHILS # 6.3 10^3/uL (1.5-8.5); NEUTROPHILS % 77.5 % (36.0-66.0); PLATELET COUNT, AUTOMATED 368 10^3/uL (150-450); RED BLOOD COUNT 3.49 10^6/uL (4.30-6.10); WHITE BLOOD COUNT 8.1 10^3/uL (4.0-10.0)
[2021-04-26 07:03] LABS: BLOOD UREA NITROGEN 13 MG/DL (7-18); CALCIUM LEVEL 7.8 MG/DL (8.8-10.2); CARBON DIOXIDE LEVEL 28 MEQ/L (21-32); CHLORIDE LEVEL 104 MEQ/L (98-107); CREATININE FOR GFR 0.76 MG/DL (0.70-1.30); GLOMERULAR FILTRATION RATE > 60.0 (>49); GLUCOSE, FASTING 88 MG/DL (70-100); POTASSIUM SERUM 4.4 MEQ/L (3.5-5.1); SODIUM LEVEL 138 MEQ/L (136-145)
[2021-04-26 07:17] VITALS: BP 117/67
[2021-04-26] MEDS: OMEPRAZOLE 20MG CAP PO SCH (08:06)
[2021-04-26] MEDS: ENOXAPARIN 40MG/0.4ML SYRINGE (J1650 PER 10MG) SC SCH (08:06)
[2021-04-26] MEDS: ASPIRIN 81MG ENTERIC TABLET PO SCH ×2 (08:06→20:41)
[2021-04-26 11:35] VITALS: BP 128/72
[2021-04-26 15:37] VITALS: BP 100/61
[2021-04-26] MEDS: SODIUM CHLORIDE 0.9% INJ 10 ML SYR IV SCH (17:37)
[2021-04-26] MEDS: REMDESIVIR 100 MG in NS 250 ML IV SCH (17:37)
[2021-04-26] MEDS ORDERED: diphenhydrAMINE 50MG/ML VIAL (J1200) IV PRN (17:45)
[2021-04-26 20:00] VITALS: BP 124/69
[2021-04-26] MEDS: VANICREAM MOISTURIZING SKIN CREAM 113GM TUBE TOP SCH (20:41)
[2021-04-27] VITALS (10 sets, daily range): BP systolic 101–121; BP diastolic 52–76
[2021-04-27 06:45] LABS: BASO # 0.1 10^3/uL (0.0-0.2); BASO % 0.6 % (0.0-1.0); EOS # 0.1 10^3/uL (0.0-0.5); EOS % 0.8 % (0.0-3.0); HEMATOCRIT 31.8 % (42.0-52.0); HEMOGLOBIN 10.2 g/dl (13.5-17.5); LYMPH # 1.5 10^3/uL (1.5-5.0); LYMPH % 17.3 % (24.0-44.0); MEAN CORPUSCULAR HEMOGLOBIN 28.5 pg (27.0-33.0); MEAN CORPUSCULAR HGB CONC 32.1 g/dl (32.0-36.5); MEAN CORPUSCULAR VOLUME 88.8 fl (80.0-96.0); MONO # 0.6 10^3/uL (0.0-0.8); MONO % 6.7 % (2.0-8.0); NEUTROPHILS # 6.2 10^3/uL (1.5-8.5); NEUTROPHILS % 73.3 % (36.0-66.0); PLATELET COUNT, AUTOMATED 417 10^3/uL (150-450); RED BLOOD COUNT 3.58 10^6/uL (4.30-6.10); WHITE BLOOD COUNT 8.4 10^3/uL (4.0-10.0)
[2021-04-27 07:06] LABS: BLOOD UREA NITROGEN 12 MG/DL (7-18); CALCIUM LEVEL 8.3 MG/DL (8.8-10.2); CARBON DIOXIDE LEVEL 28 MEQ/L (21-32); CHLORIDE LEVEL 105 MEQ/L (98-107); CREATININE FOR GFR 0.95 MG/DL (0.70-1.30); GLOMERULAR FILTRATION RATE > 60.0 (>49); GLUCOSE, FASTING 92 MG/DL (70-100); POTASSIUM SERUM 4.1 MEQ/L (3.5-5.1); SODIUM LEVEL 137 MEQ/L (136-145)
[2021-04-27] MEDS: VANCOMYCIN HCL 750 MG, VIAL MATE ADAPTER 1 EACH in NS 250 ML IV SCH ×4 (07:44→23:05)
[2021-04-27] MEDS: VANICREAM MOISTURIZING SKIN CREAM 113GM TUBE TOP SCH ×3 (08:29→23:05)
[2021-04-27] MEDS: OMEPRAZOLE 20MG CAP PO SCH (08:30)
[2021-04-27] MEDS: ASPIRIN 81MG ENTERIC TABLET PO SCH ×2 (08:30→21:13)
[2021-04-27] MEDS: ENOXAPARIN 40MG/0.4ML SYRINGE (J1650 PER 10MG) SC SCH ×2 (08:30→09:57)
[2021-04-27] MEDS ORDERED: LIDOCAINE 1% MDV 20ML VIAL As Ordered ONE (13:01)
[2021-04-27] MEDS ORDERED: LIDOCAINE 2% 100MG/5ML SDV (FOR ANES.) As Ordered ONE (17:43)
[2021-04-27] MEDS ORDERED: propofoL 200 MG/20 ML VIAL As Ordered ONE (17:43)
[2021-04-27] MEDS ORDERED: fentaNYL 100 MCG/2 ML INJECTION As Ordered ONE (17:45)
[2021-04-27] MEDS ORDERED: MIDAZOLAM INJ 2MG/2ML VIAL (J2250 PER 1MG) As Ordered ONE (18:23)
[2021-04-27] MEDS ORDERED: CETACAINE SPRAY 5GM As Ordered ONE (18:24)
[2021-04-27] MEDS ORDERED: LIDOCAINE VISCOUS 2% SOLN 15ML UDC As Ordered ONE (18:24)
[2021-04-27] MEDS: SODIUM CHLORIDE 0.9% INJ 10 ML SYR IV SCH (19:48)
[2021-04-27] MEDS: REMDESIVIR 100 MG in NS 250 ML IV SCH (19:49)
[2021-04-27] MEDS ORDERED: SODIUM CHLORIDE 0.9% INJ 10 ML SYR IV PRN (22:40)
[2021-04-28 00:17] VITALS: BP 132/70
[2021-04-28 03:49] VITALS: BP 109/63
[2021-04-28] MEDS ORDERED: SODIUM CHLORIDE 0.9% INJ 10 ML SYR IV SCH (06:00)
[2021-04-28 08:00] VITALS: BP 110/68
[2021-04-28 08:36] LABS: BASO % 0.5 % (0.0-1.0); EOS # 0.1 10^3/uL (0.0-0.5); EOS % 0.7 % (0.0-3.0); HEMATOCRIT 32.2 % (42.0-52.0); HEMOGLOBIN 10.5 g/dl (13.5-17.5); LYMPH % 12.5 % (24.0-44.0); MEAN CORPUSCULAR HEMOGLOBIN 28.5 pg (27.0-33.0); MEAN CORPUSCULAR HGB CONC 32.6 g/dl (32.0-36.5); MEAN CORPUSCULAR VOLUME 87.5 fl (80.0-96.0); MONO # 0.5 10^3/uL (0.0-0.8); MONO % 6.3 % (2.0-8.0); NEUTROPHILS # 6.4 10^3/uL (1.5-8.5); NEUTROPHILS % 78.9 % (36.0-66.0); PLATELET COUNT, AUTOMATED 409 10^3/uL (150-450); RED BLOOD COUNT 3.68 10^6/uL (4.30-6.10); WHITE BLOOD COUNT 8.1 10^3/uL (4.0-10.0)
[2021-04-28 08:54] LABS: ERYTHROCYTE SEDIMENTATION RATE 58 mm/hr (0-20)
[2021-04-28 09:00] LABS: BLOOD UREA NITROGEN 12 MG/DL (7-18); C REACTIVE PROTEIN QUANTITATIV 5.71 MG/DL (0.00-0.30); CALCIUM LEVEL 8.1 MG/DL (8.8-10.2); CARBON DIOXIDE LEVEL 27 MEQ/L (21-32); CHLORIDE LEVEL 105 MEQ/L (98-107); CREATININE FOR GFR 0.85 MG/DL (0.70-1.30); GLOMERULAR FILTRATION RATE > 60.0 (>49); GLUCOSE, FASTING 104 MG/DL (70-100); SODIUM LEVEL 138 MEQ/L (136-145)
[2021-04-28] MEDS: VANCOMYCIN HCL 750 MG, VIAL MATE ADAPTER 1 EACH in NS 250 ML IV SCH ×2 (09:39→11:15)
[2021-04-28] MEDS: ENOXAPARIN 40MG/0.4ML SYRINGE (J1650 PER 10MG) SC SCH (09:41)
[2021-04-28] MEDS: VANICREAM MOISTURIZING SKIN CREAM 113GM TUBE TOP SCH (09:42)
[2021-04-28] MEDS: ASPIRIN 81MG ENTERIC TABLET PO SCH (09:42)
[2021-04-28] MEDS: OMEPRAZOLE 20MG CAP PO SCH (09:43)
[2021-04-28] MEDS ORDERED: PERCOCET PO (10:05)
[2021-04-28 12:00] VITALS: BP 123/61
[2021-04-28] MEDS: ACETAMINOPHEN TAB 650MG DOSE (2X325MG) PO PRN (12:24)
== END 2021-04-28 12:55 | disposition home health service (06) | DRG 710 ==
LOC: M ED 07:05 → M ED INP 10:51 → EEVIPCON 10:51 → M 4MAIN 12:51
PROVIDERS: ADMIT Family Medicine; ATTEND Internal Medicine
PROC: XW033E5 Introduction of Remdesivir Anti-infective into Peripheral Vein, Percutaneous Approach, New Technology Group 5 (ICD-10-PCS; 2021-04-23)
PROC: 0J903ZX Drainage of Scalp Subcutaneous Tissue and Fascia, Percutaneous Approach, Diagnostic (ICD-10-PCS; 2021-04-23)
PROC: 0KDS0ZZ Extraction of Right Lower Leg Muscle, Open Approach (ICD-10-PCS; principal; 2021-04-24 13:00)
PROC: B246ZZ4 Ultrasonography of Right and Left Heart, Transesophageal (ICD-10-PCS; 2021-04-27)
PROC: 02HV33Z Insertion of Infusion Device into Superior Vena Cava, Percutaneous Approach (ICD-10-PCS; 2021-04-27)
DX: A41.02 Sepsis due to Methicillin resistant Staphylococcus aureus (principal); U07.1 COVID-19; L01.00 Impetigo, unspecified; S80.11XA Contusion of right lower leg, initial encounter; W18.09XA Striking against other object with subsequent fall, initial encounter; Y92.009 Unspecified place in unspecified non-institutional (private) residence as the place of occurrence of the external cause; Y93.89 Activity, other specified; Y99.8 Other external cause status; L03.811 Cellulitis of head [any part, except face]; N39.0 Urinary tract infection, site not specified; L02.411 Cutaneous abscess of right axilla; G47.33 Obstructive sleep apnea (adult) (pediatric); M17.12 Unilateral primary osteoarthritis, left knee; E55.9 Vitamin D deficiency, unspecified; E02 Subclinical iodine-deficiency hypothyroidism; Z98.84 Bariatric surgery status; K20.90 Esophagitis, unspecified without bleeding; Z90.49 Acquired absence of other specified parts of digestive tract; Z96.652 Presence of left artificial knee joint; Z79.899 Other long term (current) drug therapy

== ENCOUNTER → 2021-05-03 | Outpatient (REF) | payer BC, OTHER ==
[~2021-05-03] MED LIST changes: +CYAN100050 PO; +MULT-40 PO; +PERCOCET PO
[2021-05-03 11:51] LABS: HEMATOCRIT 30.3 % (42.0-52.0); HEMOGLOBIN 9.8 g/dl (13.5-17.5); MEAN CORPUSCULAR HEMOGLOBIN 28.7 pg (27.0-33.0); MEAN CORPUSCULAR HGB CONC 32.3 g/dl (32.0-36.5); MEAN CORPUSCULAR VOLUME 88.6 fl (80.0-96.0); PLATELET COUNT, AUTOMATED 399 10^3/uL (150-450); RED BLOOD COUNT 3.42 10^6/uL (4.30-6.10); WHITE BLOOD COUNT 10.3 10^3/uL (4.0-10.0)
[2021-05-03 12:04] LABS: C REACTIVE PROTEIN QUANTITATIV 1.21 MG/DL (0.00-0.30); VANCOMYCIN LEVEL TROUGH 13.8 UG/ML (10.0-20.0)
[2021-05-03 12:24] LABS: ERYTHROCYTE SEDIMENTATION RATE 56 mm/hr (0-20)
== END ==
LOC: M LAB REF 11:08
PROVIDERS: ATTEND Internal Medicine Infectious Disease
DX: L03.116 Cellulitis of left lower limb (principal)

== ENCOUNTER → 2021-05-08 | Outpatient (REF) | payer OTHER ==
[2021-05-08 19:04] LABS: HEMATOCRIT 34.3 % (42.0-52.0); HEMOGLOBIN 10.9 g/dl (13.5-17.5); MEAN CORPUSCULAR HEMOGLOBIN 28.9 pg (27.0-33.0); MEAN CORPUSCULAR HGB CONC 31.8 g/dl (32.0-36.5); PLATELET COUNT, AUTOMATED 262 10^3/uL (150-450); RED BLOOD COUNT 3.77 10^6/uL (4.30-6.10); WHITE BLOOD COUNT 8.4 10^3/uL (4.0-10.0)
[2021-05-08 19:27] LABS: ALBUMIN 2.9 GM/DL (3.2-5.2); ALT/SGPT 39 U/L (12-78); BILIRUBIN,TOTAL 0.4 MG/DL (0.2-1.0); BLOOD UREA NITROGEN 14 MG/DL (7-18); CALCIUM LEVEL 8.2 MG/DL (8.8-10.2); CARBON DIOXIDE LEVEL 27 MEQ/L (21-32); CHLORIDE LEVEL 102 MEQ/L (98-107); CHOLESTEROL LEVEL 119 MG/DL (<200); CHOLESTEROL RISK RATIO 3.838 (<5); CREATININE FOR GFR 0.99 MG/DL (0.70-1.30); FERRITIN 226 NG/ML (26-388); GLOMERULAR FILTRATION RATE > 60.0 (>49); GLUCOSE, FASTING 97 MG/DL (70-100); HDL CHOLESTEROL 31 MG/DL (>40); LDL CHOLESTEROL 70 MG/DL (<100); NON-HDL-C 88 MG/DL; POTASSIUM SERUM 4.1 MEQ/L (3.5-5.1); SODIUM LEVEL 138 MEQ/L (136-145); TOTAL PROTEIN 7.4 GM/DL (6.4-8.2); TRIGLYCERIDES LEVEL 92 MG/DL (<150)
[2021-05-08 19:33] LABS: TOTAL 25(OH) VITAMIN D 40.2 NG/ML (30.0-100.0)
[2021-05-08 19:34] LABS: VITAMIN B12 LEVEL > 2000 PG/ML (247-911)
[2021-05-08 19:51] LABS: HEMOGLOBIN A1c 5.9 %
== END ==
LOC: M SFHCADAM 15:01
PROVIDERS: ATTEND Family Medicine
DX: D50.8 Other iron deficiency anemias (principal); R73.03 Prediabetes; E78.2 Mixed hyperlipidemia; Z12.5 Encounter for screening for malignant neoplasm of prostate; Z98.84 Bariatric surgery status; E55.9 Vitamin D deficiency, unspecified

== ENCOUNTER → 2021-06-05 | Outpatient (CLI) | payer BC, OTHER ==
[2021-06-05 10:03] LABS: HEMATOCRIT 39.1 % (42.0-52.0); HEMOGLOBIN 12.6 g/dl (13.5-17.5); MEAN CORPUSCULAR HEMOGLOBIN 28.7 pg (27.0-33.0); MEAN CORPUSCULAR HGB CONC 32.2 g/dl (32.0-36.5); MEAN CORPUSCULAR VOLUME 89.1 fl (80.0-96.0); PLATELET COUNT, AUTOMATED 167 10^3/uL (150-450); RED BLOOD COUNT 4.39 10^6/uL (4.30-6.10); WHITE BLOOD COUNT 3.4 10^3/uL (4.0-10.0)
[2021-06-05 10:32] LABS: BLOOD UREA NITROGEN 20 MG/DL (7-18); CARBON DIOXIDE LEVEL 31 MEQ/L (21-32); CHLORIDE LEVEL 108 MEQ/L (98-107); CREATININE FOR GFR 0.94 MG/DL (0.70-1.30); GLOMERULAR FILTRATION RATE > 60.0 (>49); GLUCOSE, FASTING 112 MG/DL (70-100); POTASSIUM SERUM 4.1 MEQ/L (3.5-5.1); SODIUM LEVEL 143 MEQ/L (136-145)
[2021-06-05 10:33] LABS: FERRITIN 88 NG/ML (26-388); IRON (FE) 81 UG/DL (65-175); PERCENT SATURATION 26.6 % (19.7-50.0); TOTAL IRON BINDING CAPACITY 305 UG/DL (250-450)
== END ==
LOC: M WUC 08:01
PROVIDERS: ATTEND Family Medicine
DX: D64.9 Anemia, unspecified (principal); D50.8 Other iron deficiency anemias; A49.02 Methicillin resistant Staphylococcus aureus infection, unspecified site

== ENCOUNTER → 2021-10-19 | Outpatient (CLI) | payer BC, OTHER ==
[2021-10-19 11:37] LABS: BASO % 0.7 % (0.0-1.0); EOS # 0.1 10^3/uL (0.0-0.5); EOS % 1.6 % (0.0-3.0); HEMATOCRIT 41.9 % (42.0-52.0); HEMOGLOBIN 13.7 g/dl (13.5-17.5); LYMPH % 36.2 % (24.0-44.0); MEAN CORPUSCULAR HEMOGLOBIN 28.4 pg (27.0-33.0); MEAN CORPUSCULAR HGB CONC 32.7 g/dl (32.0-36.5); MEAN CORPUSCULAR VOLUME 86.7 fl (80.0-96.0); MONO # 0.5 10^3/uL (0.0-0.8); MONO % 9.1 % (2.0-8.0); NEUTROPHILS # 2.9 10^3/uL (1.5-8.5); PLATELET COUNT, AUTOMATED 173 10^3/uL (150-450); RED BLOOD COUNT 4.83 10^6/uL (4.30-6.10); WHITE BLOOD COUNT 5.6 10^3/uL (4.0-10.0)
== END ==
LOC: M WUC 08:01
PROVIDERS: ATTEND Family Medicine
DX: D72.819 Decreased white blood cell count, unspecified (principal)

== ENCOUNTER → 2022-06-04 | Outpatient (CLI) | payer MEDICARE, BC, OTHER ==
[2022-06-04 13:08] LABS: HEMATOCRIT 45.7 % (42.0-52.0); HEMOGLOBIN 14.6 g/dl (13.5-17.5); MEAN CORPUSCULAR HEMOGLOBIN 28.5 pg (27.0-33.0); MEAN CORPUSCULAR HGB CONC 31.9 g/dl (32.0-36.5); MEAN CORPUSCULAR VOLUME 89.1 fl (80.0-96.0); PLATELET COUNT, AUTOMATED 170 10^3/uL (150-450); RED BLOOD COUNT 5.13 10^6/uL (4.30-6.10); WHITE BLOOD COUNT 5.5 10^3/uL (4.0-10.0)
[2022-06-04 13:28] LABS: HEMOGLOBIN A1c 5.8 % (4.0-6.0)
[2022-06-04 13:46] LABS: ALBUMIN 4.1 G/DL (3.2-5.2); ALKALINE PHOSPHATASE 77 U/L (46-116); ALT/SGPT 44 U/L (7.0-40); AST/SGOT 21 U/L (<34); BILIRUBIN,TOTAL 0.8 MG/DL (0.3-1.2); BLOOD UREA NITROGEN 21 MG/DL (9-23); CALCIUM LEVEL 9.1 MG/DL (8.3-10.6); CARBON DIOXIDE LEVEL 31 MMOL/L (20-31); CHLORIDE LEVEL 104 MMOL/L (98-107); CHOLESTEROL LEVEL 144 MG/DL (<200); CHOLESTEROL RISK RATIO 4.32 (<5); CREATININE FOR GFR 0.88 MG/DL (0.70-1.30); FERRITIN 13.9 NG/ML (10.5-307.3); GLOMERULAR FILTRATION RATE > 60.0 (>49); GLUCOSE, FASTING 93 MG/DL (74-106); HDL CHOLESTEROL 33.3 MG/DL (>40); LDL CHOLESTEROL 91.1 MG/DL (<100); NON-HDL-C 110.7 MG/DL; POTASSIUM SERUM 4.5 MMOL/L (3.5-5.1); SODIUM LEVEL 140 MMOL/L (136-145); TOTAL 25(OH) VITAMIN D 39.5 NG/ML (20.0-100.0); TRIGLYCERIDES LEVEL 98 MG/DL (<150)
[2022-06-04 13:50] LABS: VITAMIN B12 LEVEL > 2000 PG/ML (211-911)
== END ==
LOC: M WUC 08:02
PROVIDERS: ATTEND Family Medicine
DX: D50.8 Other iron deficiency anemias (principal); E55.9 Vitamin D deficiency, unspecified; Z98.84 Bariatric surgery status; E78.00 Pure hypercholesterolemia, unspecified; Z12.5 Encounter for screening for malignant neoplasm of prostate
CPT/HCPCS: 36415; 80053; 80061; 82306; 82607; 82728; 83036; 85027; G0103

== ENCOUNTER → 2023-06-16 | Outpatient (CLI) | payer MEDICARE, BC, OTHER ==
[~2023-06-16] MED LIST changes: +CYAN-1 PO; -CYAN100050 PO
[2023-06-16 12:15] LABS: HEMOGLOBIN A1c 5.6 % (4.0-6.0)
[2023-06-16 12:16] LABS: HEMATOCRIT 44.7 % (42.0-52.0); HEMOGLOBIN 14.6 g/dl (13.5-17.5); MEAN CORPUSCULAR HGB CONC 32.7 g/dl (32.0-36.5); MEAN CORPUSCULAR VOLUME 88.9 fl (80.0-96.0); PLATELET COUNT, AUTOMATED 188 10^3/uL (150-450); RED BLOOD COUNT 5.03 10^6/uL (4.30-6.10); WHITE BLOOD COUNT 5.9 10^3/uL (4.0-10.0)
[2023-06-16 12:30] LABS: PSA SCREENING 0.44 NG/ML (< 4.00)
[2023-06-16 12:33] LABS: FERRITIN 21.2 NG/ML (10.5-307.3)
[2023-06-16 12:34] LABS: VITAMIN B12 LEVEL 1405 PG/ML (211-911)
[2023-06-16 12:35] LABS: TOTAL 25(OH) VITAMIN D 35.4 NG/ML (20.0-100.0)
[2023-06-16 12:36] LABS: ALBUMIN 4.1 G/DL (3.2-5.2); ALKALINE PHOSPHATASE 85 U/L (46-116); ALT/SGPT 40 U/L (7.0-40); AST/SGOT 20 U/L (<34); BILIRUBIN,TOTAL 0.6 MG/DL (0.3-1.2); BLOOD UREA NITROGEN 20 MG/DL (9-23); CARBON DIOXIDE LEVEL 29 MMOL/L (20-31); CHLORIDE LEVEL 106 MMOL/L (98-107); CHOLESTEROL LEVEL 132 MG/DL (<200); CHOLESTEROL RISK RATIO 4.19 (<5); CREATININE FOR GFR 0.88 MG/DL (0.70-1.30); GLOMERULAR FILTRATION RATE > 60.0 (>49); GLUCOSE, FASTING 113 MG/DL (74-106); HDL CHOLESTEROL 31.5 MG/DL (>40); LDL CHOLESTEROL 72.9 MG/DL (<100); NON-HDL-C 100.5 MG/DL; POTASSIUM SERUM 4.3 MMOL/L (3.5-5.1); SODIUM LEVEL 143 MMOL/L (136-145); TRIGLYCERIDES LEVEL 138 MG/DL (<150)
== END ==
LOC: M WUC 08:12
PROVIDERS: ATTEND Family Medicine
DX: E78.2 Mixed hyperlipidemia (principal); R73.03 Prediabetes; D50.8 Other iron deficiency anemias; Z98.84 Bariatric surgery status; Z12.5 Encounter for screening for malignant neoplasm of prostate
CPT/HCPCS: 36415; 80053; 80061; 82306; 82607; 82728; 83036; 85027; G0103

== ENCOUNTER → 2024-06-28 | Outpatient (CLI) | payer BC, OTHER, MEDICARE ==
[2024-06-28 12:59] LABS: HEMATOCRIT 43.8 % (42.0-52.0); HEMOGLOBIN 14.3 g/dl (13.5-17.5); MEAN CORPUSCULAR HEMOGLOBIN 28.9 pg (27.0-33.0); MEAN CORPUSCULAR HGB CONC 32.6 g/dl (32.0-36.5); MEAN CORPUSCULAR VOLUME 88.5 fl (80.0-96.0); PLATELET COUNT, AUTOMATED 170 10^3/uL (150-450); RED BLOOD COUNT 4.95 10^6/uL (4.30-6.10); WHITE BLOOD COUNT 5.4 10^3/uL (4.0-10.0)
[2024-06-28 13:01] LABS: ALKALINE PHOSPHATASE 82 U/L (40-129); ALT/SGPT 26 U/L (7.0-40); AST/SGOT 19 U/L (<34); BILIRUBIN,TOTAL 0.6 MG/DL (0.3-1.2); BLOOD UREA NITROGEN 20 MG/DL (9-23); CALCIUM LEVEL 8.8 MG/DL (8.3-10.6); CARBON DIOXIDE LEVEL 29 MMOL/L (20-31); CHLORIDE LEVEL 106 MMOL/L (98-107); CHOLESTEROL LEVEL 127 MG/DL (<200); CHOLESTEROL RISK RATIO 3.87 (<5); CREATININE FOR GFR 0.91 MG/DL (0.70-1.30); GLOMERULAR FILTRATION RATE > 90.0 (>49); GLUCOSE, FASTING 113 MG/DL (74-106); HDL CHOLESTEROL 32.8 MG/DL (>40); IRON (FE) 140 UG/DL (65-175); LDL CHOLESTEROL 75.2 MG/DL (<100); NON-HDL-C 94.2 MG/DL; POTASSIUM SERUM 4.1 MMOL/L (3.5-5.1); PSA SCREENING 0.38 NG/ML (< 4.00); SODIUM LEVEL 142 MMOL/L (136-145); TRIGLYCERIDES LEVEL 95 MG/DL (<150)
[2024-06-28 13:02] LABS: PERCENT SATURATION 42.7 % (19.7-50.0); TOTAL IRON BINDING CAPACITY 328 UG/DL (250-425)
[2024-06-28 13:03] LABS: FERRITIN 21.1 NG/ML (10.5-307.3); TOTAL 25(OH) VITAMIN D 52.3 NG/ML (20.0-100.0)
[2024-06-28 13:04] LABS: VITAMIN B12 LEVEL 1346 PG/ML (211-911)
[2024-06-28 13:33] LABS: HEMOGLOBIN A1c 5.3 % (4.0-6.0)
== END ==
LOC: M WUC 08:02
PROVIDERS: ATTEND Family Medicine
DX: Z12.5 Encounter for screening for malignant neoplasm of prostate (principal); Z98.84 Bariatric surgery status; D50.8 Other iron deficiency anemias; E78.2 Mixed hyperlipidemia